=== PATIENT | male | born 1975 | race Caucasian/White ===

== ENCOUNTER 2022-04-08 14:23 | Outpatient (CLI) | payer OTHER, SELFPAY ==
[2022-04-08 14:42] LABS: Hemoglobin A1C 5.1 % (<5.7)
[2022-04-08 14:59] LABS: ALT 37 U/L (16-63); AST 23 U/L (15-37); Albumin 4.4 g/dL (3.4-5.0); Alkaline Phosphatase 50 U/L (46-116); Anion Gap 5.6 mmol/L (3-11); BUN 16 mg/dL (7-18); Bilirubin, Total 0.8 mg/dL (0.2-1.0); CO2 31.4 mmol/L (21.0-32.0); CREATININE 0.8 mg/dL (0.70-1.30); Calcium 9.7 mg/dL (8.5-10.1); Calculated LDL 132 mg/dL (<100); Chloride 103 mmol/L (98-107); Cholesterol 216 mg/dL (<200); Estimated GFR 109.85 (mL/min/1.73m2); Glucose 91 mg/dL (74-106); HDL Cholesterol 69 mg/dL (40-60); Potassium 4.7 mmol/L (3.5-5.1); Sodium 140 mmol/L (136-145); Triglyceride 77 mg/dL (<150)
== END 2022-04-08 14:24 | disposition home or self-care (01) ==
LOC: LBO 14:24
PROVIDERS: PCP Nurse Practitioner Family; Visit Provider Nurse Practitioner Family
DX: Z00.00 Encounter for general adult medical examination without abnormal findings (principal)
CPT/HCPCS: 36415; 80053; 80061; 83036; 84443

== ENCOUNTER 2024-04-15 10:14 | Outpatient (CLI) | payer OTHER, SELFPAY ==
[2024-04-15 12:29] LABS: HCT 42.5 % (40.0-50.0); HGB 14.2 g/dL (13.5-17.5); MCH 33.4 pg (27.0-33.0); MCHC 33.4 % (32.0-36.0); MCV 100 fL (80-95); MPV 9.7 fL (8.0-11.0); Platelet Count 228 10^3/uL (130-400); RBC 4.25 10^6/uL (4.36-5.78); RDW 12.2 % (11.8-14.1); RDW-SD 45.1 fL
[2024-04-15 12:43] LABS: ALT 38 U/L (16-63); AST 23 U/L (15-37); Alkaline Phosphatase 48 U/L (46-116); Anion Gap 5.9 mmol/L (3-11); BUN 23 mg/dL (7-18); Bilirubin, Total 0.55 mg/dL (0.2-1.0); CO2 31.1 mmol/L (21.0-32.0); CREATININE 0.9 mg/dL (0.70-1.30); Calcium 9.1 mg/dL (8.5-10.1); Calculated LDL 116 mg/dL (<100); Chloride 105 mmol/L (98-107); Cholesterol 191 mg/dL (<200); Glucose 94 mg/dL (74-106); HDL Cholesterol 63 mg/dL (40-60); Potassium 4.2 mmol/L (3.5-5.1); Sodium 142 mmol/L (136-145); Total Protein 7.7 g/dL (6.4-8.2); Triglyceride 61 mg/dL (<150)
[2024-04-15 19:06] LABS: Hepatitis C Ab w Rflx HCV PCR Negative (Negative)
[2024-04-15 19:08] LABS: HIV-1/2 Ag & Ab Screen Negative (Negative)
[2024-04-15 19:12] LABS: HBs Antibody, Quant <3.1 mIU/mL (See Note); Hep B Surface Ab Negative (See Note); Hepatitis B Core Antibody Negative (Negative); Hepatitis B Surface Antigen Negative (Negative)
== END 2024-04-15 10:15 | disposition home or self-care (01) ==
LOC: LOS 10:14
PROVIDERS: PCP Nurse Practitioner Family; Visit Provider Nurse Practitioner Family
DX: Z00.00 Encounter for general adult medical examination without abnormal findings (principal); E78.5 Hyperlipidemia, unspecified; Z11.59 Encounter for screening for other viral diseases; Z11.4 Encounter for screening for human immunodeficiency virus [HIV]; K21.9 Gastro-esophageal reflux disease without esophagitis; R73.9 Hyperglycemia, unspecified; R06.83 Snoring; F10.10 Alcohol abuse, uncomplicated
CPT/HCPCS: 36415; 80053; 80061; 85027; 86704; 86706; 86803; 87340; 87389

== ENCOUNTER 2025-02-28 13:06 | Outpatient (CLI) | payer OTHER, SELFPAY ==
[2025-02-28 16:03] LABS: ALT 48 U/L (16-63); AST 23 U/L (15-37); Albumin 4.2 g/dL (3.4-5.0); Alkaline Phosphatase 48 U/L (46-116); Anion Gap 8.9 mmol/L (3-11); BUN 14 mg/dL (7-18); Bilirubin, Total 0.6 mg/dL (0.2-1.0); CO2 29.1 mmol/L (21.0-32.0); Calcium 9.6 mg/dL (8.5-10.1); Chloride 102 mmol/L (98-107); Cholesterol 197 mg/dL (<200); Glucose 80 mg/dL (74-106); HDL Cholesterol 54 mg/dL (>or=40); Potassium 4.5 mmol/L (3.5-5.1); Sodium 140 mmol/L (136-145); Total Protein 7.6 g/dL (6.4-8.2)
[2025-03-03 09:09] LABS: PSA, Screening 0.3 ng/mL (<=3.5)
== END 2025-02-28 13:07 | disposition home or self-care (01) ==
LOC: LOS 13:07
PROVIDERS: PCP Family Medicine; Visit Provider Family Medicine
DX: Z00.00 Encounter for general adult medical examination without abnormal findings (principal); E66.9 Obesity, unspecified; Z13.6 Encounter for screening for cardiovascular disorders; Z12.5 Encounter for screening for malignant neoplasm of prostate
CPT/HCPCS: 36415; 80053; 80061; 84153